=== PATIENT | male | born 1985 | race Caucasian/White ===

== ENCOUNTER → 2016-12-30 | Outpatient (CLI) | payer OTHER ==
[~2016-12-30] MED LIST: ATOR10TA88 PO; COEN150C PO; HAWT1CAP PO; OMEG10007 PO; VNTHFA/IN INH
--- NOTE | 2016-12-30 15:53 | DIAGNOSTIC IMAGING REPORT ---
LEFT FOOT MIN 3 VIEWS ROUTINE HISTORY:31 yearsMaleLEFT FOOT PAIN COMPARISON: None available. TECHNIQUE: 3 views of the left foot. FINDINGS: Medial and lateral cortical thickening/periosteal elevation involving the mid and distal shaft of the second metatarsal. Less extensive periosteal healing involves the medial aspect of the proximal mid shaft third metatarsal. No complete fracture or dislocation is identified. No significant degenerative changes are noted. There is mild dorsal forefoot soft tissue swelling. IMPRESSION: Healing stress fractures of the second and third metatarsals with mild soft tissue swelling. The above report was generated using voice recognition software. It may contain grammatical, syntax or spelling errors. Electronically signed by: Ronaldo Dueñas 12/30/2016 3:52 PM Dictated Date/Time: 12/30/2016 3:50 PM
== END | disposition home or self-care (01) ==
LOC: C.RADBC 15:26
PROVIDERS: ATTEND Family Medicine
DX: M79.672 Pain in left foot (principal); M84.378A Stress fracture, left toe(s), initial encounter for fracture; X58.XXXA Exposure to other specified factors, initial encounter

== ENCOUNTER 2017-02-22 10:23 | Emergency (ER) | payer OTHER ==
[~2017-02-22] VITALS: Ht 182.9 cm; Wt 94.8 kg
[2017-02-22 10:26] VITALS: TEMP 36.6; Ht 182.9 cm; Wt 94.8 kg
[2017-02-22 10:46] VITALS: O2SAT 96
[2017-02-22] MEDS ORDERED: ALBUT/IPRATROP 3MG/0.5MG NEB 3 ML VIAL INH STA (11:01)
[2017-02-22] MEDS ORDERED: HAWT1CAP PO (11:23)
[2017-02-22] MEDS ORDERED: VNTHFA/IN INH (11:23)
[2017-02-22] MEDS ORDERED: OMEG10007 PO (11:23)
[2017-02-22] MEDS ORDERED: ATOR10TA88 PO (11:23)
[2017-02-22] MEDS ORDERED: COEN150C PO (11:23)
[2017-02-22 11:34] LABS: BASO % 0.4 %; BASO ABS # 0.02 K/uL (0-0.2); COMPLETE YES; EOS % 2.1 %; HEMATOCRIT 44.6 % (42-52); IG% 0.4 %; LYMPH % 32.8 %; LYMPH ABS # 1.69 K/uL (1.2-3.4); MEAN CELL VOLUME 103.2 fL (80-100); MEAN CORPUSCULAR HEMOGLOBIN 33.6 pg (25-34); MEAN CORPUSCULAR HGB CONC 32.5 g/dl (32-36); MEAN PLATELET VOLUME 8.6 fL (7.4-10.4); MONO % 7.6 %; NEUT % 56.7 %; PLATELET COUNT 216 K/uL (130-400); RED BLOOD COUNT 4.32 M/uL (4.7-6.1); WHITE BLOOD COUNT 5.15 K/uL (4.8-10.8)
--- NOTE | 2017-02-22 11:40 | DIAGNOSTIC IMAGING REPORT ---
CHEST 2 VIEWS ROUTINE HISTORY: 32 years-old Male acute shortness of breath eval for pna COMPARISON: Soft tissue neck radiographs of same day TECHNIQUE: Frontal and lateral views of the chest FINDINGS: Cardiomediastinal and hilar silhouettes are within normal limits. No pneumothorax, pleural effusion or focal airspace consolidation. Remote appearing fracture of the lateral right sixth rib is noted. The bones are otherwise grossly intact. IMPRESSION: No acute cardiopulmonary process. The above report was generated using voice recognition software. It may contain grammatical, syntax or spelling errors. Electronically signed by: Ronaldo Dueñas M.D. 02/22/2017 11:38 AM Dictated Date/Time: 02/22/2017 11:37 AM
--- NOTE | 2017-02-22 11:41 | DIAGNOSTIC IMAGING REPORT ---
SOFT TISSUE NECK HISTORY: 32 years-old Male dyspnea eval airway COMPARISON: Chest radiograph of same day TECHNIQUE: 2 views of the soft tissues of the neck FINDINGS: Epiglottis and aryepiglottic folds appear normal. There is no prevertebral soft tissue swelling or opaque foreign body identified. No soft tissue gas. Lung apices appear clear airway appears patent. Mild multilevel changes of the cervical spine are noted with intervertebral disc space narrowing at C5-C6. IMPRESSION: Unremarkable soft tissues of the neck. The above report was generated using voice recognition software. It may contain grammatical, syntax or spelling errors. Electronically signed by: Ronaldo Dueñas M.D. 02/22/2017 11:40 AM Dictated Date/Time: 02/22/2017 11:38 AM
[2017-02-22 11:52] LABS: BUN/CREATININE RATIO 10.6 (10-20); CALCIUM 9.3 mg/dl (8.5-10.1); CREATININE 0.95 mg/dl (0.60-1.40); POTASSIUM 4.3 mmol/L (3.5-5.1)
[2017-02-22 13:55] VITALS: BP 128/70; PULSE 76; O2SAT 98
--- NOTE | 2017-02-22 16:49 | EMERGENCY ROOM VISIT NOTE ---
History Report prepared by Manuel: Samantha Mera Under the Supervision of: Dr. Da Shirley M.D. First contact with patient: 10:48 Chief Complaint: RESPIRATORY PROBLEMS Stated Complaint: DIFFICULTY BREATHING TIGHT THROAT Nursing Triage Summary: triage: pt has stuffy nose tightness in throat for about 1 week, pt reports "feeling anxious, making it worse" pt recently decreased smoking History of Present Illness The patient is a 32 year old male who presents to the Emergency Room with complaints of worsening respiratory symptoms for the past couple of days. He states that he has had trouble swallowing and thinks that it is related to his anxiety. He states that he has had a "minor version" of this symptom for the past 1-2 years. The patient states that this usually only happens when he is "very anxious" or stressed out. Over the past 2-3 days this sensation has been worsening. He reports that last night it was especially bad when he was trying to fall asleep. The patient states, "I think a lot of feeling like I can't breathe is in my head." He uses an albuterol inhaler when his symptoms get more intense. The patient has had some sinus congestion recently and has been using a Neti Pot. The patient has talked to his PCP about these symptoms in the past. He was placed on Propranolol for his anxiety. He states that he took this medication for a while, but he developed shortness of breath and fatigue with it so he eventually stopped. His PCP advised him to stop the medication and start hydroxyzine but the patient never started this new medication because he was afraid of the side effects. He is not currently taking any medications for his anxiety. The patient states that drinking alcohol helps to alleviate his respiratory symptoms and trouble swallowing. He states that after drinking a couple of beers his throat "relaxes" and then he has no trouble breathing or falling asleep. The patient recently cut down from smoking 1 pack of cigarettes daily to smoking half a pack of cigarettes daily. He denies fevers, sore throat , and chest pain. Source of History: patient Onset: a couple of days ago Position: other (respiratory) Timing: worsening Modifying Factors (Worsening): other (anxiety/stress) Modifying Factors (Relieving): drinking (alcohol), other (albuterol inhaler) Associated Symptoms: No fevers, No sorethroat, No chest pain Review of Systems See HPI for pertinent positives & negatives. A total of 10 systems reviewed and were otherwise negative. Past Medical & Surgical Medical Problems: (1) No significant past medical history Family History Anxiety disorder Diabetes mellitus Social History Smoking Status: Current Every Day Smoker Alcohol Use: occasionally Marital Status: single Housing Status: lives alone Occupation Status: employed Current/Historical Medications Scheduled Albuterol Hfa (Ventolin Hfa), 2-4 PUFFS INH Q6H Atorvastatin (Lipitor), Unknown Dose PO DAILY Coenzyme Q10 (Ubidecarenone) (Co Q-10), 150 MG PO DAILY Fish Oil (Vidal-3), 1 CAP PO DAILY [place] ([place]), 150 MG PO DAILY Allergies Coded Allergies: Codeine (Unverified Allergy, Mild, FEVER, 02/22/17) Physical Exam Vital Signs Date Time Temp Pulse Resp B/P (MAP) Pulse Ox O2 Delivery O2 Flow Rate FiO2 02/22/17 13:55 76 18 128/70 98 02/22/17 13:33 79 02/22/17 13:18 77 18 128/70 98 Room Air 02/22/17 11:38 71 18 121/86 100 Room Air 02/22/17 10:46 96 Room Air 02/22/17 10:46 79 02/22/17 10:45 95 Room Air 02/22/17 10:26 36.6 92 20 156/98 97 Room Air Physical Exam Constitutional: Vital signs reviewed. Eyes: Pupils are equal round reactive to light. Conjunctiva are noninjected. ENT: Pharynx is clear without erythema or exudate. No swelling to the uvula or tongue. Mucous membranes are moist. Neck supple without meningeal signs. Respiratory: Minimal expiratory wheezing bilaterally. Breath sounds are equal bilaterally. No stridor. Cardiovascular: Regular rate and rhythm. No rubs or gallops. GI: Soft, nondistended and nontender. Bowel sounds are present. Musculoskeletal: No peripheral edema. No lower extremity tenderness. Integumentary: No cyanosis. Neurological: The patient is awake and alert. No focal deficits. Psychiatric: Anxious. Medical Decision & Procedures ER Provider Diagnostic Interpretation: Radiology results as stated below per my review and the radiologist's interpretation: SOFT TISSUE NECK HISTORY: 32 years-old Male dyspnea eval airway COMPARISON: Chest radiograph of same day TECHNIQUE: 2 views of the soft tissues of the neck FINDINGS: Epiglottis and aryepiglottic folds appear normal. There is no prevertebral soft tissue swelling or opaque foreign body identified. No soft tissue gas. Lung apices appear clear airway appears patent. Mild multilevel changes of the cervical spine are noted with intervertebral disc space narrowing at C5-C6. IMPRESSION: Unremarkable soft tissues of the neck. The above report was generated using voice recognition software. It may contain grammatical, syntax or spelling errors. Electronically signed by: Ronaldo Dueñas M.D. 02/22/2017 11:40 AM Dictated Date/Time: 02/22/2017 11:38 AM CHEST 2 VIEWS ROUTINE HISTORY: 32 years-old Male acute shortness of breath eval for pna COMPARISON: Soft tissue neck radiographs of same day TECHNIQUE: Frontal and lateral views of the chest FINDINGS: Cardiomediastinal and hilar silhouettes are within normal limits. No pneumothorax, pleural effusion or focal airspace consolidation. Remote appearing fracture of the lateral right sixth rib is noted. The bones are otherwise grossly intact. IMPRESSION: No acute cardiopulmonary process. The above report was generated using voice recognition software. It may contain grammatical, syntax or spelling errors. Electronically signed by: Ronaldo Dueñas M.D. 02/22/2017 11:38 AM Dictated Date/Time: 02/22/2017 11:37 AM Laboratory Results 02/22/17 11:10 Red Blood Count 4.32, Mean Corpuscular Volume 103.2, Mean Corpuscular Hemoglobin 33.6, Mean Corpuscular Hemoglobin Concent 32.5, Mean Platelet Volume 8.6, Neutrophils (%) (Auto) 56.7, Lymphocytes (%) (Auto) 32.8, Monocytes (%) ( Auto) 7.6, Eosinophils (%) (Auto) 2.1, Basophils (%) (Auto) 0.4, Neutrophils # ( Auto) 2.92, Lymphocytes # (Auto) 1.69, Monocytes # (Auto) 0.39, Eosinophils # ( Auto) 0.11, Basophils # (Auto) 0.02 02/22/17 11:10 Test 02/22/17 11:10 02/22/17 11:16 White Blood Count 5.15 K/uL (4.8-10.8) Red Blood Count 4.32 M/uL (4.7-6.1) Hemoglobin 14.5 g/dL (14.0-18.0) Hematocrit 44.6 % (42-52) Mean Corpuscular Volume 103.2 fL (80-100) Mean Corpuscular Hemoglobin 33.6 pg (25-34) Mean Corpuscular Hemoglobin Concent 32.5 g/dl (32-36) Platelet Count 216 K/uL (130-400) Mean Platelet Volume 8.6 fL (7.4-10.4) Neutrophils (%) (Auto) 56.7 % Lymphocytes (%) (Auto) 32.8 % Monocytes (%) (Auto) 7.6 % Eosinophils (%) (Auto) 2.1 % Basophils (%) (Auto) 0.4 % Neutrophils # (Auto) 2.92 K/uL (1.4-6.5) Lymphocytes # (Auto) 1.69 K/uL (1.2-3.4) Monocytes # (Auto) 0.39 K/uL (0.11-0.59) Eosinophils # (Auto) 0.11 K/uL (0-0.5) Basophils # (Auto) 0.02 K/uL (0-0.2) RDW Standard Deviation 46.7 fL (36.4-46.3) RDW Coefficient of Variation 12.3 % (11.5-14.5) Immature Granulocyte % (Auto) 0.4 % Immature Granulocyte # (Auto) 0.02 K/uL (0.00-0.02) D-Dimer < 190 ug/L FEU (0-500) Anion Gap 4.0 mmol/L (3-11) Est Creatinine Clear Calc Drug Dose 130.9 ml/min Estimated GFR () 120.6 Estimated GFR (Non- 104.0 BUN/Creatinine Ratio 10.6 (10-20) Calcium Level 9.3 mg/dl (8.5-10.1) Bedside Troponin I < 0.030 ng/ml (0-0.045) Laboratory results as reviewed by me. Medications Administered Medications (Trade) Dose Ordered Sig/Nadir Route Start Time Stop Time Status Last Admin Dose Admin Albuterol/ Ipratropium (Duoneb) 3 ml NOW STAT INH 02/22/17 11:01 02/22/17 11:04 DC 02/22/17 11:13 3 ML ECG Indication: SOB/dyspnea Rate (beats per minute): 74 Rhythm: normal sinus Findings: no acute ischemic change, no ectopy ED Course 1049: The patient was evaluated in room C5. A complete history and physical exam was performed. 1101: DuoNeb 3 ml INH 1123: I reevaluated the patient. He was having a panic attack. He started the neb and then started to feel like his throat was closing up so he stopped it and felt better. 1203: Upon reevaluation the patient has no wheezing on exam after the neb. I discussed his results with him and he is feeling better at this time. 1321: I reassessed the patient at this time. He is feeling better and resting comfortably. I discussed the results and treatment plan with the patient. I answered all pertaining questions that he had. He expressed understanding and verbalized agreement. The patient will be discharged home. Medical Decision This is a 32-year-old male who presents with trouble breathing and feeling like his throat is closing up. Differential diagnosis includes globus hystericus, pneumonia, allergic rhinitis, angioedema, anxiety, pulmonary embolism. I did perform a limited focused review of portions of the patient's old chart on the electronic medical record. The patient has had no recent pertinent visits to this hospital. I did evaluate the patient as noted above. The patient has been developing trouble breathing and feeling like his throat has been closing up for 1-2 years. Recently it has gotten worse. It is related to stress and anxiety and he says it gets better when he drinks alcohol. He also states that he has been exercising more and denies being dyspneic during exercise or developing any chest pain. His symptoms appear to be most likely secondary to anxiety. He has no signs of angioedema on examination. He does have some mild scattered wheezing on lung examination. He does state that he is a smoker and tried to cut back. IV access was established. The patient was placed on a continuous front desk monitor. I did treat him with a DuoNeb. He did feel anxious while using the DuoNeb and so we closed off 1 end of the DuoNeb and let the aerosol blow on his face. He did well with this. I did order and personally review the patient's 12-lead EKG and chest x-ray as described above. I did order and review the patient's blood work as noted in the electronic medical record. Troponin is negative. D-dimer is negative. He is not anemic. I did reassess the patient. He is feeling better. He has no wheezing on examination. I did discuss the test results with the patient. I did recommend further evaluation by his doctor. His symptoms appear to be related to anxiety at this time. He was, however, given return instructions as outlined below. Medication Reconcilliation Current Medication List: was personally reviewed by me Blood Pressure Screening Patient's blood pressure: Elevated blood pressure Blood pressure disposition: Referred to PCP Impression Primary Impression: Dyspnea Additional Impression: Anxiety Scribe Attestation The scribe's documentation has been prepared under my direct and personally reviewed by me in its entirety. I confirm that the note above accurately reflects all work, treatment, procedures, and medical decision making performed by me. Departure Information Dispostion Home / Self-Care Referrals Yamilka Ramsey M.D. Forms HOME CARE DOCUMENTATION FORM, IMPORTANT VISIT INFORMATION, WORK / SCHOOL INSTRUCTIONS Patient Instructions ED Dyspnea Shortness of Breath, My [facility] Additional Instructions You have been examined and treated today on an emergency basis only. This is not a substitute for, or an effort to provide, complete comprehensive medical care. It is impossible to recognize and treat all injuries or illnesses in a single emergency department visit. It is therefore important that you follow up closely with your physician. Call as soon as possible for an appointment. Return for worsening symptoms or if you develop fever, vomiting, chest pain, swelling to your face, tongue or any other concerning symptoms. Problem Qualifiers Primary Impression: Dyspnea Dyspnea type: unspecified Qualified Codes: R06.00 - Dyspnea, unspecified
== END 2017-02-22 13:56 | disposition home or self-care (01) ==
LOC: C.EDB 10:25 → C.EDC 13:56
DX: R06.00 Dyspnea, unspecified (principal); F41.9 Anxiety disorder, unspecified; F17.210 Nicotine dependence, cigarettes, uncomplicated; Z83.3 Family history of diabetes mellitus; Z81.8 Family history of other mental and behavioral disorders; Z79.899 Other long term (current) drug therapy